=== PATIENT | female | born 1975 | race Caucasian/White ===

== ENCOUNTER → 2020-07-14 16:55 | Outpatient (CLI) | payer OTHER, SELFPAY ==
--- NOTE | ~2020-07-14 | US_ITS ---
EXAMINATION: US transvaginal EXAM DATE: 07/14/2020 17:17 INDICATION: Abnormal uterine bleeding for 3 or 4 weeks. TECHNIQUE: Pelvic transvaginal sonogram was performed. There are multiple grayscale and Doppler imag es available for interpretation. There is no prior study for comparison. FINDINGS: Uterus measures 6.2 x 3.4 x 4.5 cm, and is morphologically normal. Endometrial stripe bal sures 5 mm, within normal limits. There is no free pelvic fluid. Right adnexa: The ovary measures 2.1 x 1.4 x 1.5 cm and is morphologically normal. Ovarian vascular f low confirmed. Left adnexa: The ovary measures 1.7 x 2.0 x 1.8 cm and is morphologically normal. Ovarian vascular fl ow confirmed. IMPRESSION: Unremarkable pelvic ultrasound exam. Reviewed, dictated and finalized at location A. RCOATER
== END ==
PROVIDERS: PCP Internal Medicine; Visit Provider Nurse Practitioner
DX: N93.9 Abnormal uterine and vaginal bleeding, unspecified (principal)
CPT/HCPCS: 76830

== ENCOUNTER 2022-05-11 01:46 | Day surgery (SDC) | payer BC, SELFPAY ==
[2022-04-28 13:56] VITALS: BMI 25.8
--- NOTE | 2022-05-10 20:25 | PM.HPGS ---
History of Present Illness History of Present Illness Consent: Risks, benefits, and alternatives have been discussed and questions answered. Patient agrees to proceed with procedure. Chief complaint: neoplasm screening Narrative: Gretchen Sweeney is a 46 year old female referred for colon cancer screening . Her mother had polyps. Her maternal grandfather had colon cancer Review of Systems Review of Systems: All systems reviewed & are unremarkable except as noted in HPI and below PMFSH Family History Family History Sibling Hypertension Mother Hypertension Other Family history of malignant neoplasm of breast Social History Social History Smoking status: Never smoker Alcohol intake: current Drinks per week: 2 Substance use type: does not use Living arrangements: with family Spiritual care concerns: No Meds Home Medications and Allergies Home Medications Medication Instructions Recorded Confirmed Type cetirizine 10 mg tablet (Zyrtec) 10 mg PO HS 04/28/22 05/11/22 History dapsone 5 % topical gel 1 applic topical BID PRN other 04/28/22 05/11/22 History levothyroxine 88 mcg tablet 88 mcg PO DAILY 04/28/22 05/11/22 History propranolol 10 mg tablet 10 mg PO HS 04/28/22 05/11/22 History Allergies Allergy/AdvReac Type Severity Reaction Status Date / Time cefuroxime Allergy Unknown unknown Verified 05/11/22 07:49 Sulfa (Sulfonamide Allergy Unknown unknown Verified 05/11/22 07:49 Antibiotics) Exam Const: General: alert Orientation/consciousness: patient oriented x3 Resp: Auscultation: clear to auscultation bilaterally Cardio: Rhythm: regular rhythm GI: GI Palp: Yes Soft to palpation and No Tenderness to palpation present (GI) Neuro: General: patient oriented x3 Assessment and Plan Assessment and plan (1) Encounter for screening colonoscopy: Code(s): Z12.11 - Encounter for screening for malignant neoplasm of colon Status: Acute Assessment and Plan: Colonoscopy with possible biopsy or polypectomy or cautery or injection of substances.
[2022-05-11 07:43] VITALS: BP 129/82; PULSE 79; RESP 16; TEMP 36.4; O2SAT 100; BMI 25.9
[2022-05-11] MEDS: LACTATED RINGERS 1,000 ML 150 ML IV CONT (08:02)
--- NOTE | 2022-05-11 08:28 | WPDANESEPPF ---
Anes - Initial Pre Proc Eval Procedure: Operation Date: 05/11/22 09:00 Proposed Procedures p Screening Colonoscopy - Michael Calix MD Date/Time: 05/11/22 08:28 Surgeon: Michael Calix MD Pre Op Diagnosis: neoplasm screening Patient Data Age: 46 Gender: F Height: 1.52 m Weight: 60.3 kg Last Vital Signs Temp 97.6 F 05/11/22 07:43 Pulse 79 05/11/22 07:43 Resp 16 05/11/22 07:43 BP 129/82 05/11/22 07:43 Pulse Ox 100 05/11/22 07:43 O2 Del Method Room Air 05/11/22 07:43 Allergies Allergy/AdvReac Type Severity Reaction Status Date / Time cefuroxime Allergy Unknown unknown Verified 05/11/22 07:49 Sulfa (Sulfonamide Allergy Unknown unknown Verified 05/11/22 07:49 Antibiotics) Home Medications Medication Instructions Recorded Confirmed Type cetirizine 10 mg tablet (Zyrtec) 10 mg PO HS 04/28/22 05/11/22 History dapsone 5 % topical gel 1 applic topical BID PRN other 04/28/22 05/11/22 History levothyroxine 88 mcg tablet 88 mcg PO DAILY 04/28/22 05/11/22 History propranolol 10 mg tablet 10 mg PO HS 04/28/22 05/11/22 History Patient hx anesthesia problems: none Family hx anesthesia problems: none Results Review: All pre-operative results and documents have been reviewed as part of the pre-operative evaluation. [facility] Family History Family History Sibling Hypertension Mother Hypertension Other Family history of malignant neoplasm of breast Social History Social History Smoking status: Never smoker Alcohol intake: current Drinks per week: 2 Substance use type: does not use Living arrangements: with family Spiritual care concerns: No Anes - Eval Final PreProcedure Day of Procedure 05/11/22 08:28 Patient weight: normal Heart: regular rate and rhythm Lungs: clear to auscultation Airway: Mallampati scale class II Neurological: alert and oriented Last oral intake: >/= 8 hours ASA classification: II Emergent: no Anesthetic plan: proceed Anesthesia type and monitoring: general GIVS and standard monitoring Results Review: All pre-operative results and documents have been reviewed as part of the pre-operative evaluation. Informed Consent: The patient's anesthetic plan and its attendant risks and benefits were discussed with the patient/family/POA. Questions were solicited and answers provided to the satisfaction of the patient/family/POA.
[2022-05-11 09:15] VITALS: BP 97/58; PULSE 80; RESP 22; O2SAT 99
[2022-05-11 09:25] VITALS: BP 114/89; PULSE 76; RESP 18; O2SAT 100
[2022-05-11 09:35] VITALS: BP 119/71; PULSE 72; RESP 20; O2SAT 100
== END 2022-05-11 09:40 | disposition home or self-care (01) ==
PROVIDERS: PCP Internal Medicine; Visit Provider Internal Medicine Gastroenterology
PROC: 0DJD8ZZ Inspection of Lower Intestinal Tract, Via Natural or Artificial Opening Endoscopic (ICD-10-PCS; CPT 45378; principal; 2022-05-11 09:00)
DX: Z12.11 Encounter for screening for malignant neoplasm of colon (principal); Z80.0 Family history of malignant neoplasm of digestive organs; K57.30 Diverticulosis of large intestine without perforation or abscess without bleeding
CPT/HCPCS: 45378; J2704; J7120

== ENCOUNTER → 2022-06-02 10:13 | Outpatient (CLI) | payer BC, SELFPAY ==
--- NOTE | ~2022-06-02 | US_ITS ---
EXAMINATION: US soft tissue LE LT DATE: 06/02/2022 10:34 INDICATION: Palpable abnormality at the left calf with personal history of malignant melanoma of skin . TECHNIQUE: Multiple grayscale and Doppler ultrasound images of the region of concern at the posterior left calf were obtained. COMPARISON: None FINDINGS: No abnormal masses or fluid collections identified at the region of concern. There is a patent compre ssible 2.5 mm diameter subcutaneous vein at the region of concern. Normal appearance to the surroundi ng fat and underlying musculature. IMPRESSION: 1. Small subcutaneous vein at the region of concern at the posterior left calf. No abnormal masses or fluid collections identified. Reviewed, dictated and finalized at location B.
== END ==
PROVIDERS: PCP Internal Medicine; Visit Provider Nurse Practitioner
DX: Z85.820 Personal history of malignant melanoma of skin (principal)
CPT/HCPCS: 76882